=== PATIENT | female | born 1940 | race Two or more races ===

== ENCOUNTER → 2017-01-05 | Outpatient (CLI) | payer MEDICARE, OTHER | END | disposition home or self-care (01) | LOC: LAB 10:47 | DX: I10 Essential (primary) hypertension (principal); M06.9 Rheumatoid arthritis, unspecified; D64.9 Anemia, unspecified; M45.0 Ankylosing spondylitis of multiple sites in spine; E78.00 Pure hypercholesterolemia, unspecified; I70.0 Atherosclerosis of aorta; Z79.899 Other long term (current) drug therapy | CPT/HCPCS: 36415; 85652; 86141 ==

== ENCOUNTER 2017-05-13 20:08 | Emergency (ER) | payer MEDICARE, OTHER ==
[~2017-05-13] VITALS: Ht 144.8 cm; Wt 67.1 kg
[2017-05-13 20:51] VITALS: BP 119/66
== END 2017-05-13 23:10 | disposition left against medical advice (07) ==
LOC: ER 20:08
DX: R50.9 Fever, unspecified (principal); J11.1 Influenza due to unidentified influenza virus with other respiratory manifestations; Z53.21 Procedure and treatment not carried out due to patient leaving prior to being seen by health care provider